=== PATIENT | female | born 1995 | race African-American/Black ===

== ENCOUNTER 2020-03-31 20:43 | Emergency (ER) | payer OTHER ==
[~2020-03-31] VITALS: Ht 162.6 cm; Wt 136.1 kg
[~2020-03-31 20:43] MED LIST: MACROBID 100 M100 M1 PO; TRINATE TABLET1 TAB PO
[2020-03-31 21:52] LABS: ABSOLUTE NEUTROPHILS 8.5 thou/uL (1.4-8.2); BASOPHILS 0.5 % (0.0-2.0); EOSINOPHILS 0.7 % (0.0-3.0); HEMATOCRIT 36.4 % (37.0-47.0); HEMOGLOBIN 11.6 gm/dL (12.0-15.0); LYMPHOCYTES 15.5 % (24.0-44.0); MCH 24.3 pg (26.0-34.0); MCHC 31.8 g/dL (28.0-37.0); MCV 76.6 fL (80.0-100.0); MONOCYTES 4.4 % (1.0-8.0); PLATELET COUNT 273 thou/uL (150-400); POLYS 78.9 % (36.0-66.0); RBC 4.75 mil/uL (4.20-5.00); RDW 16.3 % (10.5-14.5); WBC 10.7 thou/uL (4.0-11.0)
[2020-03-31 22:30] LABS: ANION GAP 14 mmol/L (7-16); BUN 10 mg/dL (7-18); CALCIUM 8.5 mg/dL (8.5-10.1); CHLORIDE 105 mmol/L (98-107); CO2 24 mmol/L (21-32); GLUCOSE 110 mg/dL (74-106); POTASSIUM 3.6 mmol/L (3.5-5.1); SODIUM 143 mmol/L (136-145)
[2020-03-31 22:37] LABS: ALBUMIN 3.2 g/dL (3.4-5.0); LIPASE 46 U/L (73-393); SGOT 13 U/L (15-37); SGPT 17 U/L (30-65); TOTAL BILIRUBIN 0.3 mg/dL (0.2-1.0); TOTAL PROTEIN 7.1 g/dL (6.4-8.2); TROPONIN-I <0.06 ng/mL (<0.06)
[2020-03-31 23:32] LABS: URINE BILIRUBIN NEGATIVE (Negative); URINE BLOOD NEGATIVE (Negative); URINE CLARITY SL CLOUDY; URINE COLOR YELLOW; URINE GLUCOSE-RANDOM* NEGATIVE (Negative); URINE KETONES NEGATIVE (Negative); URINE LEUKOCYTES-REFLEX TRACE (Negative); URINE PROTEIN (DIPSTICK) TRACE (Negative)
[2020-03-31 23:34] LABS: URINE NITRITE-REFLEX POSITIVE (Negative)
[2020-03-31 23:51] LABS: SQUAMOUS >10 Many /LPF (0-3)
[2020-03-31 23:52] LABS: BACTERIA-REFLEX >30 Many /HPF (None Seen); CASTS None Seen /LPF (None Seen); CRYSTALS None Seen /LPF (None Seen); MUCUS 0-3 Light strn/LPF (None Seen); URINE RBC 0-2 Rare /HPF (0-2); URINE WBC-REFLEX 6-15 Few /HPF (0-5)
[2020-04-01] MEDS ORDERED: KEFLEX500 M1 PO (00:14)
[2020-04-01 00:34] VITALS: BP 103/53
--- NOTE | 2020-04-01 07:15 | EKG ---
[facility] [place] [address] ELECTROCARDIOGRAM REPORT Name: ADRY ADAMS Room #: [facility] ALHAJI Duncan#: [id number] Admission: 03/31/20 Attend Phys: Discharge: 04/01/20 Date of : [birth year] Report #: [id number] THIS REPORT FOR: cc: [facility] - Clinic physician unknown [facility] - Clinic physician unknown Red Redman MD [facility] ~ THIS REPORT FOR: //name// [facility] ED Test Date: 2020-03-31 Test Time: 20:50:59 Pat Name: ADRY ADAMS Department: Room: Gender: F 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
== END 2020-04-01 01:00 | disposition home or self-care (01) ==
LOC: ER 20:43
PROVIDERS: Physician Assistant
DX: N39.0 Urinary tract infection, site not specified (principal); R11.2 Nausea with vomiting, unspecified; R06.02 Shortness of breath

== ENCOUNTER 2020-05-12 07:01 | Emergency (ER) | payer OTHER ==
[~2020-05-12] VITALS: Ht 160 cm; Wt 135.2 kg
[~2020-05-12 07:01] MED LIST changes: +KEFLEX500 M1 PO
[2020-05-12 07:31] LABS: ABSOLUTE NEUTROPHILS 9.6 thou/uL (1.4-8.2); BASOPHILS 0.4 % (0.0-2.0); HEMATOCRIT 35.3 % (37.0-47.0); LYMPHOCYTES 5.2 % (24.0-44.0); MCH 23.6 pg (26.0-34.0); MCHC 31.1 g/dL (28.0-37.0); MCV 75.8 fL (80.0-100.0); MONOCYTES 9.6 % (1.0-8.0); PLATELET COUNT 196 thou/uL (150-400); POLYS 84.8 % (36.0-66.0); RBC 4.66 mil/uL (4.20-5.00); RDW 17.1 % (10.5-14.5); WBC 11.3 thou/uL (4.0-11.0)
[2020-05-12 07:41] LABS: CALCIUM 8.7 mg/dL (8.5-10.1); CREATININE 1.1 mg/dL (0.6-1.0); POTASSIUM 3.4 mmol/L (3.5-5.1)
[2020-05-12 07:47] LABS: ALBUMIN 2.7 g/dL (3.4-5.0); TOTAL BILIRUBIN 0.9 mg/dL (0.2-1.0); TOTAL PROTEIN 6.6 g/dL (6.4-8.2)
[2020-05-12 08:14] LABS: URINE BILIRUBIN NEGATIVE (Negative); URINE BLOOD 1+ (Negative); URINE CLARITY CLOUDY; URINE COLOR YELLOW; URINE GLUCOSE-RANDOM* NEGATIVE (Negative); URINE KETONES NEGATIVE (Negative); URINE LEUKOCYTES-REFLEX 3+ (Negative); URINE NITRITE-REFLEX NEGATIVE (Negative); URINE PROTEIN (DIPSTICK) 1+ (Negative); URINE SPECIFIC GRAVITY 1.015 (1.005-1.035)
[2020-05-12] MEDS ORDERED: BENTYL 10 MG CA10 M1 PO (08:31)
[2020-05-12] MEDS ORDERED: ZOFRAN ODT4 MG PO (08:31)
[2020-05-12] MEDS ORDERED: KEFLEX500 M1 PO (08:31)
[2020-05-12 08:44] LABS: BACTERIA-REFLEX >30 Many /HPF (None Seen); CASTS None Seen /LPF (None Seen); SQUAMOUS 0-3 Few /LPF (0-3); URINE WBC-REFLEX >25 Many /HPF (0-5)
[2020-05-12 08:45] LABS: CRYSTALS None Seen /LPF (None Seen); URINE RBC 3-10 Few /HPF (0-2); WBC CLUMPS Many (None Seen)
[2020-05-12 09:00] VITALS: BP 152/81
== END 2020-05-12 09:02 | disposition home or self-care (01) ==
LOC: ER 07:01
PROVIDERS: Emergency Medicine
DX: R11.2 Nausea with vomiting, unspecified (principal); N30.90 Cystitis, unspecified without hematuria; Z79.899 Other long term (current) drug therapy

== ENCOUNTER 2020-06-23 03:35 | Emergency (ER) | payer OTHER ==
[~2020-06-23] VITALS: Ht 157.5 cm; Wt 140.6 kg
[~2020-06-23 03:35] MED LIST changes: +BENTYL 10 MG CA10 M1 PO; +ZOFRAN ODT4 MG PO
[2020-06-23] MEDS ORDERED: HYDROCODON-ACE1 EAC7 PO (03:59)
[2020-06-23] MEDS ORDERED: PENICILLIN VK500 M1 PO (03:59)
[2020-06-23 04:07] VITALS: BP 144/92
== END 2020-06-23 04:09 | disposition home or self-care (01) ==
LOC: ER 03:35
DX: R59.0 Localized enlarged lymph nodes (principal); K02.9 Dental caries, unspecified; K03.81 Cracked tooth